=== PATIENT | male | born 1995 | race Hispanic/Latino ===

== ENCOUNTER 2018-01-16 10:11 | Emergency (ER) | payer SELFPAY ==
[2018-01-16 10:42] LABS: Absolute Lymphocytes (CBC) 2.1 K/uL (0.7-4.9); Absolute Monocytes 0.4 K/uL (0.1-1.3); Absolute Neutrophil 5.2 K/uL (1.8-8.0); Basophils % 0.6 % (0-1.3); Eosinophils % 2.1 % (0-4.4); Lymphocytes % 26.7 % (15.3-44.8); MCH 29.8 pg (27.0-35.0); MPV 8.9 fL (7.6-11.3); Monocytes % 5.4 % (3.3-12.3); RBC Red Blood Cell Count 5.12 M/uL (4.33-5.43)
[2018-01-16 10:56] LABS: Potassium 3.5 mmol/L (3.5-5.1)
--- NOTE | 2018-01-16 11:51 | ER ---
Nurse's Notes [facility] Name: Matt Sung Age: 22 yrs Sex: Male : 1995 Arrival Date: 01/16/2018 Time: 10:[address] Private MD: Diagnosis: Unspecified injury of head Presentation: 01/16 10:20 Presenting complaint: EMS states: EMS states patient fell off a ladder, positive LOC, ae1 unknown time being unconsciousness. Patient states he remembers "slipping" .Witnesses say patient was leaning, slumped over against the side of the house. Care prior to arrival: IV initiated. 18 GA, in the left antecubital area. 10:20 Acuity: RC 2 ae1 10:20 Method Of Arrival: EMS: [facility] ae1 10:24 Mechanism of Injury: Fall from ladder. Trauma event details: Injury occurred in the [address] 12:17 Transition of care: patient was not received from another setting of care. Onset of ae1 symptoms was January 16, 2018. Risk Assessment: Do you want to hurt yourself or someone else? Patient reports no desire to harm self or others. Initial Sepsis Screen: Does the patient meet any 2 criteria? No. Patient's initial sepsis screen is negative. Does the patient have a suspected source of infection? No. Patient's initial sepsis screen is negative. Historical: - Allergies: 10:23 No Known Allergies; ae1 - Home Meds: 10:23 None [Active]; ae1 - PMHx: 10:23 None; ae1 - PSHx: 10:23 None; ae1 - Immunization history:: Adult Immunizations not up to date. - Social history:: Smoking status: Patient/guardian denies using tobacco. - Immunization history: Last tetanus immunization: < 10 years ago. - Ebola Screening: : Patient negative for fever greater than or equal to 101.5 degrees Fahrenheit, and additional compatible Ebola Virus Disease symptoms Patient denies exposure to infectious person Patient denies travel to an Ebola-affected area in the 21 days before illness onset. Screenin:14 Abuse screen: Denies threats or abuse. Nutritional screening: No deficits noted. ae1 Tuberculosis screening: No symptoms or risk factors identified. Fall Risk Fall in past 12 months (25 points). No secondary diagnosis (0 pts). No IV (0 pts). Ambulatory Aid- None/Bed Rest/Nurse Assist (0 pts). Gait- Normal/Bed Rest/Wheelchair (0 pts) Mental Status- Oriented to own ability (0 pts). Primary Survey: 10:23 A: Airway: patent. Breathing/Chest: Respiratory pattern: regular, Respiratory effort: ae1 spontaneous. Disability Alert. 10:40 Reassessment Breathing/Chest Circulation Color [place] Temperature Warm Other Patient ae1 appears less diaphoretic. 12:20 Circulation: Cardiac rhythm: sinus rhythm. ae1 Assessment: 10:15 General: Appears in no apparent distress. uncomfortable, Behavior is calm, cooperative. ae1 Pain: Complains of pain in occipital area. Neuro: Level of Consciousness is awake, alert, obeys commands, Oriented to person, place, time, situation. Cardiovascular: Rhythm is regular. Respiratory: Airway is patent Respiratory effort is even, unlabored, Respiratory pattern is regular, symmetrical. GI: No signs and/or symptoms were reported involving the gastrointestinal system. Abdomen is round Abd is soft and non tender. : No signs and/or symptoms were reported regarding the genitourinary system. EENT: No signs and/or symptoms were reported regarding the EENT system. Derm: Skin is diaphoretic, Skin temperature is warm. Musculoskeletal: patient arrived with c collar applied. No visible swelling or deformities to extremities or spine. Injury Description: Fall. 11:00 Reassessment: Patient appears in no apparent distress at this time. Patient and/or ae1 family updated on plan of care and expected duration. Pain level reassessed. Patient states feeling better. Vital Signs: 10:18 BP 140 / 85; Pulse 67; Resp 18; Temp 98.4(O); Pulse Ox 99% on R/A; Weight 99.79 kg (R); ae1 12:06 BP 132 / 75; Pulse 62; Resp 18; Pulse Ox 100% on R/A; ae1 [place] Coma Score: 10:18 Eye Response: spontaneous(4). Verbal Response: oriented(5). Motor Response: obeys ae1 commands(6). Total: 15. Trauma Score (Adult): 10:18 Eye Response: spontaneous(1); Verbal Response: oriented(1); Motor Response: obeys ae1 commands(2); Systolic BP: > 89 mm Hg(4); Respiratory Rate: 10 to 29 per min(4); Javed Score: 15; Trauma Score: 12 ED Course: 10:18 Patient arrived in ED. ae1 10:18 Sy Allen PA is PHCP. jmm 10:18 Richard Seo MD is Attending Physician. jmm 10:22 Triage completed. ae1 10:23 Arm band placed on right wrist. ae1 10:23 Bed in low position. Call light in reach. Side rails up X2. Pulse ox on. NIBP on. ae1 10:24 Maintain EMS IV. Dressing intact. Good blood return noted. Site clean \\T\\ dry. Gauge \\T\\ ae 1 site: 18 left AC. Patient maintains SpO2 saturation greater than 95% on room air. 10:35 Emiliano Velazco, RN is Primary Nurse. ae1 10:48 CT completed. Patient moved to CT via stretcher. Patient moved back from CT. kw1 10:49 CT Traumagram (Head C Spine CAP W Con) In Process Unspecified. EDMS 12:15 No provider procedures requiring assistance completed. ae1 12:17 Thermoregulation: no blanket applied, patient was warm and "sweaty". ae1 12:31 IV discontinued, intact, bleeding controlled, No redness/swelling at site. Pressure ae1 dressing applied. Administered Medications: No medications were administered Intake: 12:19 PO: 0ml; Total: 0ml. ae1 Output: 12:19 Urine: 0ml; Total: 0ml. ae1 Outcome: 11:51 Discharge ordered by . jmm 12:19 Discharged to home ae1 12:19 Condition: stable 12:19 Discharge instructions given to patient, significant other, Instructed on discharge instructions, follow up and referral plans. Demonstrated understanding of instructions. 12:32 Patient left the ED. ae1 Signatures: Dispatcher [employer] EDMS Sy Allen PA PA jmm Elliott, Andrea, RN RN ae1 Kassandra Wills kw1
--- NOTE | 2018-01-16 11:52 | EDPHYS ---
Physician Documentation [facility] Name: Matt Sung Age: 22 yrs Sex: Male : 1995 Arrival Date: 01/16/2018 Time: 10:[address] Private MD: ED Physician Richard Seo HPI: 01/16 10:18 This 22 yrs old Male presents to ER via EMS with complaints of Fall Injury. jmm 10:18 Details of fall: The patient fell from a height, from a ladder, approximately 7 feet. jmm Onset: The symptoms/episode began/occurred acutely, at an unknown time. Associated injuries: The patient sustained injury to the head. This is a 22 year old male with no chronic medical conditions that presents to the ED with headache following a fall from a ladder. The patient states he remembers slipping on the ladder. There was positive LOC according to EMS with repetitive questioning in route. Patient denies chest pain, shortness of breath, abdominal pain, vomiting. Patient complains of pain to his tailbone. Denies weakness or pain to his extremities. . Historical: - Allergies: 10:23 No Known Allergies; ae1 - Home Meds: 10:23 None [Active]; ae1 - PMHx: 10:23 None; ae1 - PSHx: 10:23 None; ae1 - Immunization history:: Adult Immunizations not up to date. - Social history:: Smoking status: Patient/guardian denies using tobacco. - Immunization history: Last tetanus immunization: < 10 years ago. - Ebola Screening: : Patient negative for fever greater than or equal to 101.5 degrees Fahrenheit, and additional compatible Ebola Virus Disease symptoms Patient denies exposure to infectious person Patient denies travel to an Ebola-affected area in the 21 days before illness onset. ROS: 10:18 Constitutional: Negative for fever, chills, and weight loss, Cardiovascular: Negative jm for chest pain, palpitations, and edema, Respiratory: Negative for shortness of breath, cough, wheezing, and pleuritic chest pain, Abdomen/GI: Negative for abdominal pain, nausea, vomiting, diarrhea, and constipation. 10:18 MS/Extremity: Negative for injury and deformity, Skin: Negative for injury, rash, and discoloration. 10:18 Back: Positive for pain at rest. 10:18 Neuro: Positive for headache. 10:18 All other systems are negative. Exam: 10:18 Constitutional: The patient appears in no acute distress, alert, awake. [facility] 10:18 Head/face: Exam is negative for obvious evidence of injury or deformity, abrasion(s), jm morales signs, ecchymosis, hematoma, raccoon eyes, swelling, Noted is tenderness, that is mild, of the left occipital area and right occipital area. 10:18 Eyes: Pupils: no acute changes, normal reaction to light, Extraocular movements: intact throughout. 10:18 Neck: C-spine: C-collar placed [employer]. 10:18 Chest/axilla: Inspection: normal, Palpation: is normal. 10:18 Cardiovascular: Rate: normal, Rhythm: regular, Pulses: no pulse deficits are appreciated. 10:18 Respiratory: the patient does not display signs of respiratory distress, Respirations: normal, Breath sounds: are clear throughout. 10:18 Abdomen/GI: Inspection: abdomen appears normal, Bowel sounds: normal, Palpation: abdomen is soft and non-tender, in all quadrants. 10:18 Back: pain, that is mild, of the left low back and right low back. 10:18 Musculoskeletal/extremity: ROM: intact in all extremities. 10:18 Skin: Appearance: Color: normal in color. 10:18 Neuro: Orientation: is normal, Mentation: is normal, Memory: is normal. 10:18 Psych: Behavior/mood is pleasant, cooperative. Vital Signs: 10:18 BP 140 / 85; Pulse 67; Resp 18; Temp 98.4(O); Pulse Ox 99% on R/A; Weight 99.79 kg (R); ae1 12:06 BP 132 / 75; Pulse 62; Resp 18; Pulse Ox 100% on R/A; ae1 [place] Coma Score: 10:18 Eye Response: spontaneous(4). Verbal Response: oriented(5). Motor Response: obeys ae1 commands(6). Total: 15. Trauma Score (Adult): 10:18 Eye Response: spontaneous(1); Verbal Response: oriented(1); Motor Response: obeys ae1 commands(2); Systolic BP: > 89 mm Hg(4); Respiratory Rate: 10 to 29 per min(4); [place] Score: 15; Trauma Score: 12 MDM: 10:18 Patient medically screened. jmm 11:50 Data reviewed: vital signs, nurses notes, radiologic studies, CT scan. ED course: CT [facility] Trauma negative per Dr. Jj. 12:09 Counseling: I had a detailed discussion with the patient and/or guardian regarding: the [facility] historical points, exam findings, and any diagnostic results supporting the discharge/admit diagnosis, the presence of at least one elevated blood pressure reading (>120/80) during this emergency department visit, radiology results, the need for outpatient follow up, to return to the emergency department if symptoms worsen or persist or if there are any questions or concerns that arise at home. 01/16 10:19 Order name: Basic Metabolic Panel; Complete Time: 11:19 [facility] 01/16 10:19 Order name: CBC with Diff; Complete Time: 10:52 [facility] 01/16 10:19 Order name: Creatinine for Radiology; Complete Time: 11:19 [facility] 01/16 10:19 Order name: Type And Screen; Complete Time: 11:36 [facility] 01/16 10:19 Order name: CT Traumagram (Head C Spine CAP W Con); Complete Time: 11:59 [facility] 01/16 11:33 Order name: ABO/RH no charge; Complete Time: 11:36 [facility] 01/16 10:19 Order name: Labs collected and sent; Complete Time: 10:34 [facility] 01/16 10:19 Order name: Urine Dipstick-Ancillary (obtain specimen) [facility] Administered Medications: No medications were administered Disposition: 01/16/18 11:51 Discharged to Home. Impression: Unspecified injury of head. - Condition is Stable. - Discharge Instructions: Head Injury, Adult. - Medication Reconciliation Form, Thank You Letter, Antibiotic Education, Prescription Opioid Use form. - Follow up: Private Physician; When: 2 - 3 days; Reason: Continuance of care. Addendum: 01/17/2018 15:16 Co-signature as Attending Physician, Richard Seo MD I agree with the assessment and c quinonez plan of care. Signatures: Dispatcher [employer] Richard Ly MD MD cha Mickail, Joel, PA PA [facility] Emiliano Velazco, RN RN ae1 Corrections: (The following items were deleted from the chart) 01/16 12:32 11:51 01/16/2018 11:51 Discharged to Home. Impression: Unspecified injury of head. ae1 Condition is Stable. Forms are Medication Reconciliation Form, Thank You Letter, Antibiotic Education, Prescription Opioid Use. Follow up: Private Physician; When: 2 - 3 days; Reason: Continuance of care. april
--- NOTE | 2018-01-16 11:57 | RAD REPORT ---
EXAM DESCRIPTION: CT - Head C Spine Cap Vria Batista - 01/16/2018 10:48 am CLINICAL HISTORY: Fall from ladder, loss of consciousness, head, neck, chest and abdomen injury COMPARISON: None. TECHNIQUE: Axial [address] head images were obtained. Axial [address] cervical spine images were obtaine d with sagittal and coronal reconstruction images reviewed. During dynamic enhancement of 100mL non-i onic contrast, axial 5 mm images of the chest, abdomen and pelvis were obtained. Sagittal and coronal reconstruction imaging of the thoracic and lumbar spine performed. All CT scans are performed using dose optimization technique as appropriate and may include automated exposure control or mA/KV adjustment according to patient size. FINDINGS: No intracranial hemorrhage, mass or edema. No midline shift or abnormal fluid collection. Mastoid air cells and paranasal sinuses are clear. No skull fracture. CT cervical spine imaging shows normal height. Normal alignment of the vertebrae. No disc space narro wing. No paraspinal mass or hematoma seen. Central canal detail is inherently limited. Concerns for t raumatic disc herniation or traumatic cord injury can be further addressed with MR imaging. CT chest shows no pneumothorax, pulmonary contusion or pleural fluid collection. No mediastinal hemat siobhan and the aorta and pulmonary arteries are unremarkable. No chest will mass or abnormal axillary fi nding. No displaced rib fracture or other significant bony finding. CT abdomen and pelvis show no injury to solid abdominal viscera. Gallbladder and biliary tree are unr emarkable. No bowel injury or significant finding. No free air, free fluid or abnormal stranding. No urinary bladder abnormality. No significant bony finding. IMPRESSION: No significant CT Head finding. No significant CT Cervical Spine finding. No significant CT Chest finding. No significant CT Abdomen and Pelvis finding.
== END 2018-01-16 12:32 | disposition home or self-care (01) ==
LOC: ER 10:11
DX: S09.90XA Unspecified injury of head, initial encounter (principal); W11.XXXA Fall on and from ladder, initial encounter; Y93.9 Activity, unspecified; Y92.9 Unspecified place or not applicable
CPT/HCPCS: 36415; 70450; 71260; 72125; 74177; 80048; 85025; 86850; 86900; 86901; 99284; Q9967